=== PATIENT | female | born 1955 | race Caucasian/White ===

== ENCOUNTER 2024-01-13 15:44 | Emergency (ER) | payer MEDICARE, OTHER, SELFPAY ==
[2024-01-13 15:50] VITALS: BP 167/76; PULSE 107; RESP 24; TEMP 35.9; O2SAT 93; BMI 24.9
[2024-01-13 16:52] LABS: PCR FLU A Negative PCR FLU A (Negative); PCR FLU B Negative PCR FLU B (Negative); PCR RSV Negative PCR RSV (Negative); SARS PCR* Negative SARS-CoV-2 (Negative)
[2024-01-13 17:50] VITALS: BP 159/88; PULSE 86; RESP 16; O2SAT 94
--- NOTE | 2024-01-13 17:58 | ED_ITS ---
HPI - General Adult General Date Seen: 01/13/24 Chief complaint: Cough Stated complaint: cough, headache Time Seen by Provider: 01/13/24 16:51 Source: patient Mode of arrival: ambulatory Limitations: no limitations History of Present Illness HPI narrative: Patient is a 68-year-old female with a history of coronary artery disease presenting to the emergency department for respiratory symptoms. States 6 days ago she started to get fevers and chills and was coughing up a dark yellow mucus. She went to urgent care 2 days ago where they did a chest x-ray and she was told she had viral symptoms. She was also coughing quite a bit so was prescribed Robitussin which she says has helped quite a bit. She now states the the phlegm is a liner yellow in appearance. She is not noticing fevers or chills but has noticed the past 2 days she has woken up drenched in sweat. Has also had diarrhea for the past 2 days. States she has not had a soft formed bowel movement since the . Denies chest pain. Has not noticed any more shortness of breath compared to normal. The does states she is able to walk around her house without issues but she is feeling fatigued more than normal. Denies abdominal pain, headache, lightheadedness, dizziness, weakness, numbness. Is not having any associated chest pain. States she has not be eating much due to not having much of an appetite. She does states she feels dehydrated. Related Data Home Medications ?Medication ?Instructions ?Recorded ?Confirmed alendronate 70 mg tablet 70 mg PO QHS 01/11/24 01/13/24 aspirin 81 mg tablet,delayed 81 mg PO QDAY 01/11/24 01/11/24 release atorvastatin 80 mg tablet 80 mg PO DAILY 01/11/24 01/13/24 calcium carbonate (Alcalak) 168 mg PO TID 01/11/24 01/13/24 clopidogrel 75 mg tablet 75 mg PO DAILY 01/11/24 01/13/24 furosemide 20 mg tablet 10 mg PO 01/11/24 01/11/24 lisinopril 5 mg tablet 5 mg PO DAILY 01/11/24 01/13/24 melatonin 3 mg capsule 3 mg PO QDAY 01/11/24 01/13/24 metoprolol succinate 25 mg 25 mg PO DAILY 01/11/24 01/13/24 tablet,extended release 24 hr nitroglycerin 0.4 mg sublingual 0.4 mg sublingual Q5M PRN 01/11/24 01/13/24 tablet trazodone 50 mg tablet 25 mg PO QPM PRN 01/11/24 01/13/24 Allergies Allergy/AdvReac Type Severity Reaction Status Date / Time Penicillins Allergy Verified 01/13/24 21:21 Review of Systems Status of ROS: Reports: 10 or more systems reviewed and unremarkable except as noted in History and below [facility] Social History Smoking Status: Former smoker What tobacco products do you use: cigarettes Years smoked: 20 Do you use any of these nicotine containing products: None How often do you have a drink containing alcohol: monthly or less AUDIT-C Alcohol total score: 1 Non-prescribed substance use: denies use Exam Narrative: Exam Narrative: Const: Well-nourished, Well-developed, in mild distress Eyes: PERRL, no conjunctival injection, and symmetrical lids HENT: Atraumatic external nose and ears. Moist mucous membranes. Neck: Symmetric, trachea midline, No thyromegaly. CVS: RRR, No murmurs or gallops. Peripheral pulses 2+ and equal in all extremities RESP: Unlabored respiratory effort. Clear to auscultation bilaterally. GI: Nontender/Nondistended, No rebound or guarding. MSK:Extremities w/o deformity, Normal Active ROM Skin: Warm, Dry. No rashes or lesions. Neuro: Normal Muscle tone, No focal neurological deficits. Psych: Awake, Alert, & Oriented x3. Appropriate mood and affect. Const: Vital Signs, click to edit/add: Vital Signs - 24 hr 01/13/24 15:50 01/13/24 17:50 01/13/24 20:00 Temperature 96.6 F L Pulse Rate [Pulse Oximeter] 107 H 86 91 Respiratory Rate 24 16 16 Blood Pressure [Ri ght Upper Arm] 167/76 H 159/88 H 179/95 H Pulse Oximetry 93 94 95 Oxygen Delivery Me thod Room Air Room Air Room Air 01/13/24 22:03 Temperature Pulse Rate [Pulse Oximeter] 87 Respiratory Rate 20 Blood Pressure [Ri ght Upper Arm] 186/92 H Pulse Oximetry 95 Oxygen Delivery Me thod Room Air Course Vital Signs Vital signs: Initial Vital Signs Temperature 96.6 F L 01/13/24 15:50 Temperature Source Temporal Artery Scan 01/13/24 15:50 Pulse Rate 107 H 01/13/24 15:50 Pulse Rhythm Regular 01/13/24 15:50 Pulse Strength 3+ Normal 01/13/24 15:50 Respiratory Rate 24 01/13/24 15:50 Blood Pressure 167/76 H 01/13/24 15:50 Blood Pressure Mean 106 H 01/13/24 15:50 Blood Pressure Position Sitting 01/13/24 15:50 Pulse Oximetry 93 01/13/24 15:50 Oxygen Delivery Method Room Air 01/13/24 15:50 Vital Signs Temperature 96.6 F L 01/13/24 15:50 Pulse Rate 107 H 01/13/24 15:50 Respiratory Rate 24 01/13/24 15:50 Blood Pressure 167/76 H 01/13/24 15:50 Pulse Oximetry 93 01/13/24 15:50 Oxygen Delivery Method Room Air 01/13/24 15:50 Temperature 96.6 F L 01/13/24 15:50 Pulse Rate 87 01/13/24 22:03 Respiratory Rate 20 01/13/24 22:03 Blood Pressure 186/92 H 01/13/24 22:03 Pulse Oximetry 95 01/13/24 22:03 Oxygen Delivery Method Room Air 01/13/24 22:03 Medications Administered Medications: Discontinued Medications Generic Name Dose Route Start Last Admin Trade Name Freq PRN Reason Stop Dose Admin Lactated Ringer's 1,000 mls @ 1,000 mls/hr 01/13/24 17:45 01/13/24 19:56 Lactated Ringers 1000 Ml IV 01/13/24 18:44 Infused .Q1H ONE Infusion Medical Decision Making [facility] Narrative Medical decision making narrative: Patient is a 68-year-old female presenting for what seems like respiratory symptoms. This could be pneumonia. With her history though I will check for signs of ACS. Will also check a D-dimer for signs of a PE. COVID/flu/RSV test ordered in triage. She meets SIRS criteria with a respiratory rate and heart rate and thus will order blood cultures, lactate, CBC, BMP, D-dimer, troponin, EKG. 1 L of lactated Ringer's was ordered. Lab work returned showing no concerning abnormalities other than elevated D- dimer 2.93. COVID/flu/RSV is negative. Troponin and EKG shows no concerning findings. With the elevated D-dimer will do CTA of the chest to look for signs of PE. This also look for signs pneumonia or other intrathoracic abnormalities. CTA return showing bronchial wall thickening and scattered endobronchial debris along with patchy pulmonary opacities. These could be infectious or inflammatory but considering she is having a productive and yellow phlegm I will treat her as infectious. Will start her on antibiotics. She has been stable throughout her time in emergency department I believe she is safe for discharge. She is agreeable to this plan. I prescribed Levaquin because she has a penicillin allergy and does not remember what it was. Well unlikely to be any anaphylaxis she could probably use cephalosporins I will give her Levaquin instead at this time. Lab Data Labs: Lab Results 01/13/24 01/13/24 01/13/24 Range/Units 15:32 17:46 18:30 WBC 11.14 H (4.50-11.00) K/uL RBC 3.75 L (4.00-5.20) m/uL Hgb 10.9 L (12.0-16.0) gm/dL Hct 34.3 (33.0-51.0) % MCV 92 (80-100) fL MCH 29 (26-34) pg MCHC 32 (32-36) gm/dL RDW Coeff of Keo 13.1 (11.5-15.5) % Plt Count 307 (140-440) K/uL Neut % (Auto) 89.6 H (42.0-72.0) % Lymph % (Auto) 4.3 L (20-44) % Forest % (Auto) 5.2 (0.0-11.0) % Eos % (Auto) 0.0 (0.0-7.0) % Baso % (Auto) 0.1 (0.0-3.0) % Neut # (Auto) 10.00 H (1.7-7.0) K/uL Lymph # (Auto) 0.50 L (0.90-2.90) K/uL Forest # (Auto) 0.60 (0.00-0.90) K/UL Eos # (Auto) 0.00 (0.00-0.50) K/uL Baso # (Auto) 0.00 (0.00-0.30) K/uL Abs Immat Gran (auto) 0.10 (0.00-0.30) K/uL Imm/Tot Granulo (auto) 0.8 % D-Dimer Quant (PE/DVT) 2.93 H (0.00-0.50) ug/ml Sodium 141 (135-149) mmol/L Potassium 3.7 (3.6-5.1) mmol/L Chloride 105 (96-114) mmol/L Carbon Dioxide 27 (20-32) mmol/L Anion Gap 9 (7-15) mEq/L BUN 25 (7-30) mg/dL Creatinine 0.7 (0.5-1.5) mg/dL Estimated Creat Clear 54.32 Estimated GFR 94 ml/min Glucose 126 H (60-115) mg/dL Lactate 1.3 (0.5-1.9) mmol/L Calcium 9.2 (8.4-10.6) mg/dL Magnesium 2.4 (1.5-2.6) mg/dL SARS-CoV-2 (PCR) Negative SARS-CoV-2 (Negative) Influenza Type A (PCR) Negative PCR FLU A (Negative) Influenza Type B (PCR) Negative PCR FLU B (Negative) RSV (PCR) Negative PCR RSV (Negative) POC Troponin I 0.00 L (0.01-0.04) ng/ml 01/13/24 Range/Units 18:30 WBC (4.50-11.00) K/uL RBC (4.00-5.20) m/uL Hgb (12.0-16.0) gm/dL Hct (33.0-51.0) % MCV (80-100) fL MCH (26-34) pg MCHC (32-36) gm/dL RDW Coeff of Keo (11.5-15.5) % Plt Count (140-440) K/uL Neut % (Auto) (42.0-72.0) % Lymph % (Auto) (20-44) % Forest % (Auto) (0.0-11.0) % Eos % (Auto) (0.0-7.0) % Baso % (Auto) (0.0-3.0) % Neut # (Auto) (1.7-7.0) K/uL Lymph # (Auto) (0.90-2.90) K/uL Forest # (Auto) (0.00-0.90) K/UL Eos # (Auto) (0.00-0.50) K/uL Baso # (Auto) (0.00-0.30) K/uL Abs Immat Gran (auto) (0.00-0.30) K/uL Imm/Tot Granulo (auto) % D-Dimer Quant (PE/DVT) (0.00-0.50) ug/ml Sodium (135-149) mmol/L Potassium (3.6-5.1) mmol/L Chloride (96-114) mmol/L Carbon Dioxide (20-32) mmol/L Anion Gap (7-15) mEq/L BUN (7-30) mg/dL Creatinine (0.5-1.5) mg/dL Estimated Creat Clear Estimated GFR ml/min Glucose (60-115) mg/dL Lactate (0.5-1.9) mmol/L Calcium (8.4-10.6) mg/dL Magnesium Cancelled (1.5-2.6) mg/dL SARS-CoV-2 (PCR) (Negative) Influenza Type A (PCR) (Negative) Influenza Type B (PCR) (Negative) RSV (PCR) (Negative) POC Troponin I (0.01-0.04) ng/ml Imaging Data CTA chest: Attestation: I have reviewed the pertinent imaging results. Radiologist's impression: 1. No pulmonary embolism appreciated. 2. Bronchial wall thickening, scattered endobronchial debris, [id number]-[id number]-right basilar patchy pulmonary opacities, and scattered centrilobular nodules. Spectrum of findings is suspicious for infectious or inflammatory process, possibly chronic aspiration and pneumonitis with bronchiolitis. The largest discrete nodule measures [address] millimeters. Follow-up CT in 12 months recommended. 3. Additional chronic findings as above. Please note that all CT scans at this facility use dose modulation, iterative reconstruction, and/or weight-based dosing when appropriate to reduce radiation dose to as low as reasonably achievable. Dictated by German Guardado MD @ 01/13/2024 9:57:35 PM ECG Data Attestation: I personally reviewed and interpreted this ECG as follows: Prior ECG tracings: not available for review Interpretation: Sinus tachycardia with a rate of 103 beats per minute, normal intervals, normal axis, no ST or T-wave abnormalities Discharge Plan Discharge Clinical Impression: Pneumonia Patient Disposition: Home, Self-Care Condition: Stable Instructions: Community Acquired Pneumonia (DC) Additional Instructions: Take antibiotics as directed. Levofloxacin was prescribed through instymeds Return to emergency department for new or worsening symptoms. Prescriptions: No Action lisinopril 5 mg tablet 5 mg PO DAILY alendronate 70 mg tablet 70 mg PO QHS aspirin 81 mg tablet,delayed release (DR/EC) 81 mg PO QDAY atorvastatin 80 mg tablet 80 mg PO DAILY Alcalak 168 mg calcium (420 mg) tablet,chewable 168 mg PO TID clopidogrel 75 mg tablet 75 mg PO DAILY furosemide 20 mg tablet 10 mg PO melatonin 3 mg capsule 3 mg PO QDAY metoprolol succinate 25 mg tablet extended release 24 hr 25 mg PO DAILY trazodone 50 mg tablet 25 mg PO QPM PRN nitroglycerin 0.4 mg tablet, sublingual 0.4 mg sublingual Q5M PRN Follow Up/Referrals: Provider,Not a Local [Primary Care Provider] - Stand Alone Forms: [facility] Info Instructions
[2024-01-13] MEDS: LACTATED RINGERS 1000 ML 1,000 ML IV (18:19)
[2024-01-13 18:34] LABS: Lactate Sepsis w/Reflex* 1.3 mmol/L (0.5-1.9)
[2024-01-13 18:38] LABS: Basophils Percent Auto 0.1 % (0.0-3.0); Hematocrit 34.3 % (33.0-51.0); Hemoglobin* 10.9 gm/dL (12.0-16.0); Immature Granulocytes Pct Auto 0.8 %; Lymphocytes Percent Auto 4.3 % (20-44); Mean Corpuscular HGB Conc 32 gm/dL (32-36); Mean Corpuscular Hemoglobin 29 pg (26-34); Mean Corpuscular Volume 92 fL (80-100); Monocytes Percent Auto 5.2 % (0.0-11.0); Neutrophils Percent Auto 89.6 % (42.0-72.0); Platelet Count* 307 K/uL (140-440); RDW Coefficient of Variation % 13.1 % (11.5-15.5); Red Blood Count 3.75 m/uL (4.00-5.20); White Blood Count* 11.14 K/uL (4.50-11.00)
[2024-01-13 18:58] LABS: Chloride* 105 mmol/L (96-114); Potassium* 3.7 mmol/L (3.6-5.1); Sodium* 141 mmol/L (135-149)
[2024-01-13 19:01] LABS: Anion Gap 9 mEq/L (7-15); Blood Urea Nitrogen* 25 mg/dL (7-30); Calcium* 9.2 mg/dL (8.4-10.6); Carbon Dioxide* 27 mmol/L (20-32); Creatinine* 0.7 mg/dL (0.5-1.5); D Dimer Quantitative* 2.93 ug/ml (0.00-0.50); Est. Creatinine Clearance* 54.32; Estimated Glomerular Filt Rate 94 ml/min; Glucose* 126 mg/dL (60-115)
[2024-01-13 19:02] LABS: Magnesium* 2.4 mg/dL (1.5-2.6)
[2024-01-13 19:03] LABS: Slide Review Reflex No
--- NOTE | 2024-01-13 19:06 | CRLHL7_ITS ---
For Patients: As a result of the Century Cures Act, medical imaging exams and procedure reports are released immediately into your electronic medical record. You may view this report before your referring provider. If you have questions, please contact your health care provider. Indication: Elevated D-dimer, respiratory symptoms Technique: CTA of the chest following 95 mL Isovue 370 IV contrast. Comparison: Chest radiograph performed 01/11/2024 Findings: Pulmonary arteries: No pulmonary embolism appreciated. Lungs: Jijo-[id number]-pnkl-right patchy basilar opacities. Bronchial wall thickening. Mild inspissated endobronchial debris. Scattered centrilobular nodules. Largest discrete solid nodule measures 6 millimeters in the lingula. No effusion. No pneumothorax. Mediastinum: Ascending aortic ectasia measures 3.4 centimeters without breanna aneurysm. Calcified and noncalcified atherosclerosis. Lymph nodes: Shotty mediastinal nodes. Upper abdomen: Nodular thickening of the soci-quwkndr-xmcf-right adrenal glands. Question hepatic cirrhosis. Soft tissues: No acute abnormality appreciated. Bones: No acute abnormality appreciated. Degenerative changes of the spine. Impression: 1. No pulmonary embolism appreciated. 2. Bronchial wall thickening, scattered endobronchial debris, ojpm-cwktrng-grpi-right basilar patchy pulmonary opacities, and scattered centrilobular nodules. Spectrum of findings is suspicious for infectious or inflammatory process, possibly chronic aspiration and pneumonitis with bronchiolitis. The largest discrete nodule measures 6 millimeters. Follow-up CT in 12 months recommended. 3. Additional chronic findings as above. Please note that all CT scans at this facility use dose modulation, iterative reconstruction, and/or weight-based dosing when appropriate to reduce radiation dose to as low as reasonably achievable. Dictated by German Guardado MD @ 01/13/2024 9:57:35 PM (Electronically Signed)
[2024-01-13 20:00] VITALS: BP 179/95; PULSE 91; RESP 16; O2SAT 95
[2024-01-13 22:03] VITALS: BP 186/92; PULSE 87; RESP 20; O2SAT 95
== END 2024-01-13 22:47 | disposition home or self-care (01) ==
PROVIDERS: Emergency Provider Student in an Organized Health Care Education/Training Program
DX: J18.9 Pneumonia, unspecified organism (principal)
CPT/HCPCS: 36415; 71275; 80048; 83605; 83735; 84484; 85025; 85379; 87040; 87631; 93005; 99283; 99284; 99285; J7120; Q9967